=== PATIENT | female | born 1975 | race Caucasian/White ===

== ENCOUNTER 2016-05-25 20:20 | Inpatient (IN) | payer OTHER ==
[~2016-05-25] VITALS: Ht 154.9 cm; Wt 92.5 kg
--- NOTE | ~2016-05-25 | HC ---
[facility] [place] [address] CONSULTATION Name: ANTWON DE LEON Room #: 421-P [facility] IN M.R.#: [id number] Admission: 05/25/16 Attend Phys: Ludwig Ventura Discharge: 05/28/16 Date of : 77 Report #: [id number] THIS REPORT FOR: //name// CC: FAM unknown Ludwig Ventura HISTORY OF PRESENT ILLNESS: This is a lady who was admitted here after a syncope-like episode that occurred at the kitchen table. The patient apparently lives with family and there is some mention that the sister is her caregiver, but also the sister is out of town. I was able to contact any family. The patient has limited recollection for her seizure. She acknowledges that she has not had any seizures today. She notes that she is hearing voices and she feels they have increased some because she is off one of her medications "Saphris." It is somewhat difficult to get reliable information from the patient. PAST PSYCHIATRIC HISTORY: There is some mention in the medical record of a bipolar disorder, but as she has hallucinations which had never gone away; schizophrenia versus schizoaffective disorder is the more likely diagnosis. She does note that she follows up at [facility], but is unable to tell me her physician's name. She is unable to name any of her medications besides Saphris. A medical note through the Emergency Department of 07/2013 suggests a regimen of medication that included lurasidone or Latuda 80 mg daily, Viibryd 40 mg daily and Seroquel 75 mg at bedtime. She was also at that time getting Trileptal 600 mg twice daily but as she did not have any known seizure disorder at that time, listed in the past medical history that it may have been due to psychiatric illness. PAST MEDICAL HISTORY: Hypertension, hypothyroidism, migraines, vitamin D deficiency and diabetes. SOCIAL HISTORY: Lives with family. She is disabled. ALLERGIES: She has a length allergy list and intolerance list that is available in the medical record. CURRENT MEDICATIONS: Include levothyroxine 125 mcg daily, metoprolol 25 twice daily, Keppra 500 twice daily, Seroquel 75 at bedtime, metformin 500 twice daily, Ativan p.r.n. It is important to mention that this is a similar list to 07/2013 that may have been utilized because of the patient's inability to give any other information. Distinctions between this list and the list from 2013 include the addition of Keppra during this hospital stay and the omission of meds that are not on the formulary. MENTAL STATUS EXAM: female, blunted affect. Denies depression, decreased speech, auditory hallucinations, mostly giving commentary on events or predictions of the future, which do not always come true. No suicidal or [facility] [address] [place] [address] CONSULTATION Name: ANTWON DE LEON Room #: 421-P DIS IN M.R.#: [id number] Admission: 05/25/16 Attend Phys: Ludwig Ventura Discharge: 05/28/16 Date of : 77 Report #: [id number] homicidal ideation. Insight and judgment is limited. DIAGNOSES: AXIS I: Chronic paranoid schizophrenia. AXIS II: Deferred. AXIS III: See past medical history. AXIS IV: Moderate. AXIS V: 35. RECOMMENDATIONS: We would continue to try to contact family and let them know that the patient is here. It is also possible that the patient had a withdrawal seizure if there is nonadherence to one or more medications that have anticonvulsant properties. In the meantime, we will point out that she may be reliable when she said that she used to be on Saphris and if this is not formulary, perhaps family can bring some in (though I hear she is about to discharged tomorrow). In any event, 75 mg of Seroquel is generally not an effective dose for schizophrenia, so I suspect she was on either a higher dose of this or like she said Saphris or other medications. <ELECTRONICALLY SIGNED> By: Tim Ku MD 06/04/16 0857 [id number] 0015 Tim Ku MD /nt
--- NOTE | ~2016-05-25 | HC ---
[facility] [place] [address] CONSULTATION Name: ANTWON DE LEON Room #: 421-P ADM IN M.R.#: [id number] Admission: 05/25/16 Attend Phys: Ludwig Ventura Discharge: Date of : 77 Report #: [id number] THIS REPORT FOR: //name// CC: FAM unknown Ludwig Ventura DATE OF SERVICE: 05/26/2016 HISTORY OF PRESENT ILLNESS: This is a 41-year-old female patient, who is unable to provide any reliable history. According to the notes, this patient had a family, but I cannot reach it. In fact, there is no number under the contact in the patient's computer to talk to. There is no family member who is here. I talked to the nurses looking after this patient and I talked to the patient herself. I talked to the patient's admitting physician. The patient is admitted after having a syncope-like episode. She was at the kitchen table when this syncope occurred and at that time, the patient's blood pressure was low, but subsequently she had a grand mal seizure that was witness in the Emergency Room. Description from that is poor, but looking at the record, she had a postictal period. Animal Rescuer is our home care chaplain, but I cannot feature at the moment. REVIEW OF SYSTEMS: From the patient and is unreliable. A 14-point review of systems indicated that she had psychiatric problems and she indicated that she is still hearing voices. Record indicate that at one time she used to be on Lamictal, but further history in that regard is unknown. MEDICATIONS: Include Keppra at the moment. It is not certain how long she has been on that. I suspect the best I can tell, it was started when she was here. Because of hearing voices, she is not able to provide any very good history at the moment. However, a 14-point review of system was mostly positive for psychiatric problems. At one time, there is a history of tachycardiac, record indicate that she has a history of rheumatoid arthritis and hysterectomy. That is all the records I can get mainly from the records. PAST MEDICAL HISTORY: Positive for psychiatric problems. FAMILY HISTORY: She denies any history of early age stroke. SOCIAL HISTORY: She lives with her sister. She smokes, but she indicates that she does not abuse alcohol. PHYSICAL EXAMINATION: Pretty limited. She is alert. She is responsive. She says she is hearing voices. She can tell me what hospital it is, but cannot tell me the name. Cranial nerve examination, 2-12 was attempted. She is poorly cooperative, but I do not see much focal abnormality. She moves all four extremities. The movement looks symmetrical. She thinks she can appreciate the [facility] [address] [place] [address] CONSULTATION Name: ANTWON DE LEON Room #: 421-P [facility] IN M.R.#: [id number] Admission: 05/25/16 Attend Phys: Ludwig Ventura Discharge: Date of : 77 Report #: [id number] position. Reflexes look symmetrical. Tone looks symmetrical. She did not cooperate with the fundus examination. There is no meningeal sign in this patient. She is a well-developed individual, who does not have any dysmorphic features of eyes, ears and face. Cardiac examination does not appear to be showing any atrial fibrillation. Respiratory is unremarkable. Vital signs indicate a blood pressure 107/75, respiration is 21 and pulses 115. IMPRESSION: Seizure by history. She also appeared to have an episode of syncope with a blood pressure went low. Typically that does not happen with seizure because the blood pressure usually goes high in this patient. RECOMMENDATION: 1. I will suggest further workup. 2. I will look at the EEG. I will try to reach the family to get some more history in this patient. I will suggest a Cardiology consult because the blood pressure did go at least low on the initial one, and she will need an MRI. We will do that tomorrow. Her white count is high, but she does not appear to have any signs of [employer] WORKER infection to spinal tap. Dr. Trinidad will follow up this patient with you from tomorrow. <ELECTRONICALLY SIGNED> By: Nicolás Barrera MD 05/27/16 1243 [id number] 3750 Nicolás Barrera MD /nt
--- NOTE | ~2016-05-25 | EKG ---
[address] [place] [address] ELECTROCARDIOGRAM REPORT Name: ANTWON DE LEON Room #: 421-P ADM IN M.R.#: [id number] Admission: 05/25/16 Attend Phys: Ludwig Ventura Discharge: Date of : 77 Report #: [id number] THIS REPORT FOR: //name// [facility] ED Test Date: 2016-05-25 Test Time: 20:27:42 Pat Name: ANTWON DE LEON Department: Room: 421 Gender: F Supervisor Detasseling Crew: MARIAM : 1975 Requested By: Misty Mota Order Number: [id number] MD: Zeus Lawler Measurements Intervals [place] Rate: 101 P: 39 WV: 135 QRS: 32 QRSD: 96 T: 28 QT: 346 QTc: 449 Interpretive Statements Sinus tachycardia Nonspecific ST and T wave abnormality No previous ECG available for comparison Electronically Signed On 05-28-2016 8:26:24 [employer] by Zeus Lawler [email or web address] <ELECTRONICALLY SIGNED> By: Zeus Lawler MD, [facility] 05/28/16 0826 26 26 Zeus Lawler MD, FACC /EPI
--- NOTE | ~2016-05-25 | 2DMMODE ---
[facility] [place] [address] [place] [address] 2 D/M-MODE ECHOCARDIOGRAM Name: ANTWON DE LEON Room #: 421-P [facility] IN M.R.#: [id number] Admission: 05/25/16 Attend Phys: Ludwig Felipe Discharge: Date of : 77 Date of Service: 05/28/16 1017 Report #: [id number] THIS REPORT FOR: //name// Transthoracic Echocardiography Ordering physician: Denis Henderson Referring physician: Denis Henderson Human Resources Specialist: Juliana Mckeon Indications/History: Syncope. Hx: HTN, COPD, HLP, DM BP: 109 / HR: 82bpm Height: 61in Weight: 204.6lb 68 Study data: M-mode, complete 2D, complete spectral Doppler, and color Doppler. Location: Bedside. Routine. Image quality was adequate. 2D measurements Normal Normal LVID ED 45.2mm 36-57 IVS ED 11.1mm 6-11 LVID ES 32.3mm 23-40 LVPW ED 10.1mm 6-11 LA volume 25ml/m2 16-28 AoRoot diam 28.9mm 21-37 index ED LVOT diameter 19mm 18-23 Findings: Left ventricle: The cavity size was normal. Wall thickness was normal. Systolic function was normal. The estimated ejection fraction was in the range of 55% to 60%. Wall motion was normal. Right ventricle: The cavity size was normal. Systolic function was normal. Right atrium: The atrium was normal in size. Left atrium: The atrium was normal in size. Volume index: 25ml/m2 (S). Aortic valve: Structurally normal valve. Doppler: There was no stenosis. No regurgitation. Peak velocity: 153.9cm/s (S). Mitral valve: Structurally normal valve. Doppler: [facility] [address] [place] [address] 2 D/M-MODE ECHOCARDIOGRAM Name: ANTWON DE LEON Room #: 123-P [facility] IN M.R.#: [id number] Admission: 05/25/16 Attend Phys: Ludwig Felipe Discharge: Date of : 77 Date of Service: 05/28/16 1017 Report #: [id number] There was no evidence for stenosis. No regurgitation. Peak E-wave velocity: 70.7cm/s. Peak gradient: 2mm Hg (D). Peak A-wave velocity: 54.6cm/s. Tricuspid valve: Structurally normal valve. Doppler: There was no evidence for stenosis. Trivial regurgitation. Regurgitant peak velocity: 222.4cm/s. Peak RV-RA gradient: 20mm Hg (S). Pulmonic valve: Structurally normal valve. Doppler: There was no evidence for stenosis. Trivial regurgitation. Pericardium: There was no pericardial effusion. Aorta: Aortic root: The aortic root was normal in size. Pulmonary artery: Systolic pressure was estimated to be 25mm Hg. Diastolic function: Normal diastolic function. Systemic veins: Inferior vena cava: The vessel was normal in size; the respirophasic diameter changes were in the normal range (= 50%). Conclusions 1. Left ventricle: The cavity size was normal. Wall thickness was normal. Systolic function was normal. The estimated ejection fraction was in the range of 55% to 60%. 2. Aortic valve: Structurally normal valve. 3. Mitral valve: Structurally normal valve. No regurgitation. 4. Pulmonic valve: Trivial regurgitation. 5. Tricuspid valve: Trivial regurgitation. 6. Pulmonary arteries: Systolic pressure was estimated to be 25mm Hg. <ELECTRONICALLY SIGNED> By: Denis Henderson MD 05/28/16 1224 1017 1224 Denis Henderson MD /teo
--- NOTE | ~2016-05-25 | EEG ---
[facility] [place] [address] ELECTROENCEPHALOGRAM Name: ANTWON DE LEON Room #: 421-P ADM IN M.R.#: [id number] Admission: 05/25/16 Attend Phys: Ludwig Fenton Discharge: Date of : 77 Report #: [id number] THIS REPORT FOR: //name// CC: FAM unknown Ludwig Ventura DATE OF EE05/26/2016 This patient is being evaluated for the possibility of seizure. EEG was done by placing the electrodes by standard 10-20 system of electrode placement. Both referential and sequential montages were used for recording. Background activity in this patient's EEG is about 11-12 Hz. It is difficult to be certain about this activity because lot of muscle artifact is present. The patient appeared to be drowsy during part of this EEG and that is associated with bilateral slowing. Photic stimulation is unremarkable. Throughout the record, no active epileptiform activity was noticed. IMPRESSION: This patient's EEG does not appear to be showing any definite epileptiform activity. EEG is suboptimal because of lot of muscle artifact. Thank you very much for this referral. <ELECTRONICALLY SIGNED> By: Nicolás Barrera MD 05/27/16 1322 1341 1849 Nicolás Barrera MD /nt
[2016-05-25 20:20] VITALS: BP 79/41
[~2016-05-25 20:20] MED LIST: ADDERALL 30 MG30 MG PO; ALBUTEROL INH INH; B-50 COMPLEX1 EAC1 PO; BENTYL10 MG PO; CHANTIX1 MG PO; CLONAZEPAM PO; CLONIDINE0.1 PO; DURAGESIC1 EAC2 TOP; FLAX SEED OIL1000 MG PO; GLUCOPHAGE500 MG PO; LATUDA80 MG PO; LEVOTHYROXIN0.125 M1 PO; LIPITOR40 MG PO; LOPRESSOR 50 MG50 M1 PO; MAXALT PO; MELATONIN5 M2 PO; MULTIVITAMINS PO; NASONEX17 GM NASAL; PATADAY2.5 ML OP; PERCOCET 5-3251 EACH PO; PHENERGAN PO; PRILOSEC40 MG PO; PRINIVIL10 MG PO; SEROQUEL PO; SYMBICORT80 MCG/4.1 INH; TOPROL XL50 MG PO; TRICOR145 MG PO; TRILEPTAL600 MG PO; VIIBRYD40 MG PO; VITAMIN D 5050000 I1 PO; VITAMIN D32000 UNIT PO; VITAMINC500 PO; ZYRTEC10 M2 PO
[2016-05-25] MEDS ORDERED: IMITREX 50 MG T50 MG PO (20:35)
[2016-05-25] MEDS ORDERED: STRATTERA80 MG PO (20:36)
[2016-05-25] MEDS ORDERED: 24HOUR ALLERGY10 MG PO (20:36)
[2016-05-25] MEDS ORDERED: ADVAIR HFA115 MCG/21 INH (20:36)
[2016-05-25] MEDS ORDERED: WELLBUTRIN SR150 MG PO (20:36)
[2016-05-25] MEDS ORDERED: VISTARIL 25 MG25 M1 PO (20:37)
[2016-05-25 20:49] LABS: ABSOLUTE NEUTROPHILS 10.7 thou/uL (1.4-8.2); BASOPHILS 0.6 % (0.0-2.0); EOSINOPHILS 0.9 % (0.0-3.0); HEMOGLOBIN 14.3 gm/dL (12.0-15.0); LYMPHOCYTES 14.9 % (24.0-44.0); MANUAL DIFF NO; MCH 30.1 pg (26.0-34.0); MCHC 34.1 % (28.0-37.0); MCV 88.3 fL (80.0-100.0); MONOCYTES 4.2 % (1.0-8.0); PLATELET COUNT 316 thou/uL (150-400); POLYS 79.4 % (36.0-66.0); RBC 4.76 mil/uL (4.20-5.00); RDW 14.9 % (10.5-14.5); WBC 13.4 thou/uL (4.0-11.0)
[2016-05-25 20:57] LABS: ANION GAP 16 mmol/L (7-16); BUN 9 mg/dL (7-18); CHLORIDE 103 mmol/L (98-107); CO2 21 mmol/L (21-32); CREATININE 1.2 mg/dL (0.6-1.3); GLUCOSE 139 mg/dL (70-99); SODIUM 140 mmol/L (136-145)
[2016-05-25 21:06] LABS: TROPONIN-I < 0.04 ng/mL (<0.04-0.07)
[2016-05-25 21:55] LABS: ALBUMIN 3.7 g/dL (3.4-5.0); ALKALINE PHOSPHATASE 137 U/L (46-116); DIRECT BILIRUBIN 0.1 mg/dL (<0.1-0.3); SALICYLATE 5.2 mg/dL (2.8-20.0); SGOT 24 U/L (15-37); SGPT 26 U/L (30-65); TOTAL BILIRUBIN 0.4 mg/dL (<0.1-1.0); TOTAL PROTEIN 7.3 g/dL (6.4-8.2)
[2016-05-25 22:11] LABS: ACETAMINOPHEN < 2 ug/mL (10-30)
[2016-05-25 22:17] LABS: ABG SAMPLE TYPE ARTERIAL; BE(vivo) -11.7 mmol/L (-2 to +3); HCO3 14.7 mmol/L (22.0-26.0); LACTATE 3.29 mmol/L (0.5-2.0); O2(CT) 16.2 mL/dL (15.0-23.0); O2Hb 91.7 % (92.0-98.0); PCO2 35.3 mmHg (35.0-45.0); PO2 94.2 mmHg (80.0-100.0); STICK SITE R.BRACHIAL; pH 7.238 (7.360-7.450); tCO2 15.8 mmol/L (24.0-30.0)
[2016-05-25 22:23] LABS: URINE BILIRUBIN NEGATIVE (Negative); URINE BLOOD NEGATIVE (Negative); URINE COLOR YELLOW; URINE GLUCOSE-RANDOM* NEGATIVE (Negative); URINE KETONES NEGATIVE (Negative); URINE NITRITE NEGATIVE (Negative); URINE PROTEIN (DIPSTICK) TRACE (Negative); URINE UROBILINOGEN 0.2 E.U./dl (0.2-1.0)
[2016-05-25 22:53] LABS: APTT 25.1 Seconds (24.5-32.8); PROTIME 10.7 Seconds (9.3-11.4)
[2016-05-25 23:48] LABS: AMP/METHAMP Negative (Negative); BARBITURATES Negative (Negative); BENZODIAZEPINES Negative (Negative); COCAINE Negative (Negative); METHADONE Negative (Negative); OPIATES Negative (Negative); PCP Negative (Negative); THC Negative (Negative)
[2016-05-26] VITALS (27 sets, daily range): BP systolic 96–143; BP diastolic 57–104
[2016-05-26 05:02] LABS: ABG SAMPLE TYPE ARTERIAL; BE(vivo) -5.8 mmol/L (-2 to +3); HCO3 18.6 mmol/L (22.0-26.0); LACTATE 1.75 mmol/L (0.5-2.0); O2(CT) 17.5 mL/dL (15.0-23.0); O2Hb 94.7 % (92.0-98.0); PO2 91.4 mmHg (80.0-100.0); STICK SITE L.BRACHIAL; pH 7.368 (7.360-7.450); sO2 96.9 % (92.0-98.0); tCO2 19.6 mmol/L (24.0-30.0)
[2016-05-26 05:15] LABS: HEMATOCRIT 36.2 % (37.0-47.0); MCH 29.7 pg (26.0-34.0); MCHC 33.9 % (28.0-37.0); MCV 87.8 fL (80.0-100.0); RBC 4.13 mil/uL (4.20-5.00); WBC 14.6 thou/uL (4.0-11.0)
[2016-05-26 05:28] LABS: HEMOGLOBIN 12.3 gm/dL (12.0-15.0)
[2016-05-26 05:29] LABS: CALCIUM 7.5 mg/dL (8.5-10.1); CREATININE 0.9 mg/dL (0.6-1.3); POTASSIUM 3.7 mmol/L (3.5-5.1)
[2016-05-26 16:10] LABS: FREE T4 1.5 ng/dL (0.82-1.77)
[2016-05-26 16:10] LABS: TSH 4.52 uIU/mL (0.450-4.500)
[2016-05-26 19:10] LABS: CORTISOL AM 21.7 ug/dL (6.2-19.4)
[2016-05-26 21:05] LABS: GLYCOHEMOGLOBIN (HGB A1C) 5.8 % (4.8-5.6)
[2016-05-27 02:37] LABS: HEMATOCRIT 35.5 % (37.0-47.0); HEMOGLOBIN 11.8 gm/dL (12.0-15.0); MCH 29.6 pg (26.0-34.0); MCHC 33.3 % (28.0-37.0); MCV 88.9 fL (80.0-100.0); RBC 3.99 mil/uL (4.20-5.00); RDW 14.9 % (10.5-14.5); WBC 16.9 thou/uL (4.0-11.0)
[2016-05-27 02:59] LABS: CALCIUM 8.3 mg/dL (8.5-10.1); CREATININE 0.7 mg/dL (0.6-1.3); MAGNESIUM 1.8 mg/dL (1.8-2.4); POTASSIUM 3.4 mmol/L (3.5-5.1); TOTAL BILIRUBIN 0.4 mg/dL (<0.1-1.0)
[2016-05-27 04:00] VITALS: BP 126/70
[2016-05-27 07:36] VITALS: BP 131/65
[2016-05-27] MEDS ORDERED: KEPPRA 500 MG500 M1 PO (09:50)
[2016-05-27 15:39] VITALS: BP 145/80
[2016-05-27 20:00] VITALS: BP 114/73
[2016-05-28 04:00] VITALS: BP 110/80
[2016-05-28 07:39] VITALS: BP 109/68
[2016-05-28 09:00] VITALS: BP 109/68
[2016-05-28 12:12] VITALS: BP 109/68
[2016-05-28 13:00] VITALS: BP 109/68
== END 2016-05-28 13:36 | disposition home or self-care (01) | DRG 100 ==
LOC: ER 20:20 → 4E 22:16 → ICU 22:16 → 4E 05-26 13:35
PROVIDERS: Emergency Medicine; Hospitalist; Nurse Practitioner Acute Care
DX: G40.909 Epilepsy, unspecified, not intractable, without status epilepticus (principal); G92 Toxic encephalopathy; F20.0 Paranoid schizophrenia; E87.2 Acidosis; R55 Syncope and collapse; F31.9 Bipolar disorder, unspecified; I10 Essential (primary) hypertension; G43.909 Migraine, unspecified, not intractable, without status migrainosus; E03.9 Hypothyroidism, unspecified; E11.9 Type 2 diabetes mellitus without complications; F41.9 Anxiety disorder, unspecified; E78.00 Pure hypercholesterolemia, unspecified; K21.9 Gastro-esophageal reflux disease without esophagitis; F43.10 Post-traumatic stress disorder, unspecified; F17.210 Nicotine dependence, cigarettes, uncomplicated; I95.9 Hypotension, unspecified; M06.9 Rheumatoid arthritis, unspecified; K58.9 Irritable bowel syndrome, unspecified; M79.7 Fibromyalgia; F98.8 Other specified behavioral and emotional disorders with onset usually occurring in childhood and adolescence; F41.0 Panic disorder [episodic paroxysmal anxiety]; Z88.2 Allergy status to sulfonamides; Z91.040 Latex allergy status; Z88.6 Allergy status to analgesic agent; Z88.8 Allergy status to other drugs, medicaments and biological substances; Z79.899 Other long term (current) drug therapy; Z90.710 Acquired absence of both cervix and uterus; Z90.49 Acquired absence of other specified parts of digestive tract; Z98.890 Other specified postprocedural states; Z85.72 Personal history of non-Hodgkin lymphomas; Z86.14 Personal history of Methicillin resistant Staphylococcus aureus infection; Z23 Encounter for immunization
CPT/HCPCS: 10078; 10183